=== PATIENT | female | born 1975 | race Caucasian/White ===

== ENCOUNTER → 2017-01-07 | Outpatient (CLI) | payer OTHER ==
[~2017-01-07] MED LIST: GADOBUTROL 7.5 MMOL/7.5 ML PFS ONE
== END | disposition home or self-care (01) ==
LOC: CFH 12:42
PROVIDERS: ATTEND Nurse Practitioner Primary Care
DX: M50.323 Other cervical disc degeneration at C6-C7 level (principal); M50.223 Other cervical disc displacement at C6-C7 level; E03.9 Hypothyroidism, unspecified; E78.2 Mixed hyperlipidemia; R51 Headache; G89.29 Other chronic pain; Z79.899 Other long term (current) drug therapy; Z80.3 Family history of malignant neoplasm of breast
CPT/HCPCS: 70553; 72141; A9585

== ENCOUNTER → 2018-04-18 | Outpatient (CLI) | payer OTHER | END | disposition home or self-care (01) | LOC: CFH 15:21 | PROVIDERS: ATTEND Nurse Practitioner Primary Care | DX: Z12.31 Encounter for screening mammogram for malignant neoplasm of breast (principal) | CPT/HCPCS: 77063; 77067 ==

== ENCOUNTER 2019-10-01 13:54 | Outpatient (CLI) | payer OTHER ==
[2019-10-01] MEDS ORDERED: ASCO500T8 PO (15:08)
[2019-10-01] MEDS ORDERED: IBUP-1623 PO (15:08)
[2019-10-01] MEDS ORDERED: LORA-702 PO (15:08)
[2019-10-01] MEDS ORDERED: TRAZ50TA66 PO (15:08)
[2019-10-01] MEDS ORDERED: TURM500C4 PO (15:08)
[2019-10-01] MEDS ORDERED: CYAN50003 PO (15:08)
[2019-10-01] MEDS ORDERED: TOPI50TA8 PO (15:08)
[2019-10-01] MEDS ORDERED: CHOL10003 PO (15:08)
[2019-10-01] MEDS ORDERED: ELDE1CAP PO (15:08)
[2019-10-01] MEDS ORDERED: ALBU8.5H8 INH (15:08)
== END 2019-10-01 23:59 | disposition home or self-care (01) ==
LOC: STAR 13:54
PROVIDERS: ATTEND Surgery Surgery of the Hand
DX: Z02.9 Encounter for administrative examinations, unspecified (principal)

== ENCOUNTER 2019-10-05 05:29 | Day surgery (SDC) | payer OTHER ==
[~2019-10-05] VITALS: Ht 157.5 cm; Wt 52.3 kg
[~2019-10-05 05:29] MED LIST changes: +ALBU8.5H8 INH; +ASCO500T8 PO; +CHOL10003 PO; +CYAN50003 PO; +ELDE1CAP PO; -GADOBUTROL 7.5 MMOL/7.5 ML PFS ONE; +IBUP-1623 PO; +LORA-702 PO; +TOPI50TA8 PO; +TRAZ50TA66 PO; +TURM500C4 PO
[2019-10-05] MEDS ORDERED: CHLORHEXIDINE 15 ML UDC MM STA (06:12)
[2019-10-05] MEDS ORDERED: LACTATED RINGERS 1,000 ML IV SCH (06:12)
[2019-10-05 06:14] LABS: HCG UR SG 1.015 (1.003-1.030)
[2019-10-05] MEDS ORDERED: BUPIVACAINE/PF 0.25% ONE (06:27)
[2019-10-05] MEDS ORDERED: BUPIVACAINE/PF 0.5% ONE (06:27)
[2019-10-05] MEDS ORDERED: LIDOCAINE 1%, 20ML ONE ×2 (06:27→06:41)
[2019-10-05] MEDS ORDERED: EPINEPHRINE 1 MG/ML, 1ML ONE (06:29)
[2019-10-05] MEDS ORDERED: VANCOMYCIN 1,000 MG ONE (06:35)
[2019-10-05] MEDS ORDERED: LABETALOL 5MG/ML, 20ML ONE (06:40)
[2019-10-05] MEDS ORDERED: MAGNESIUM SULFATE 1 GM/2 ML ONE (06:40)
[2019-10-05] MEDS ORDERED: DEXAMETHASONE 4 MG/ML, 1ML ONE (06:50)
[2019-10-05] MEDS ORDERED: LIDOCAINE 2% 100MG/5ML SYRINGE ONE (06:50)
[2019-10-05] MEDS ORDERED: PROPOFOL 10 MG/ML, 20ML ONE (06:50)
[2019-10-05] MEDS ORDERED: ROCURONIUM 10MG/ML,5ML ONE (06:50)
[2019-10-05] MEDS ORDERED: CEFAZOLIN 1,000 MG ONE (06:50)
[2019-10-05] MEDS ORDERED: GLYCOPYRROLATE 0.2MG/1ML, 5ML ONE (06:50)
[2019-10-05] MEDS ORDERED: MIDAZOLAM 1 MG/ML, 2ML ONE (06:51)
[2019-10-05] MEDS ORDERED: FENTANYL PF 100 MCG/2ML ONE ×2 (06:51→08:19)
[2019-10-05] MEDS ORDERED: HYDROmorphone 1 MG/ML, 1ML INJ IVPush PRN (07:30)
[2019-10-05] MEDS ORDERED: MEPERIDINE/PF 25MG/0.5ML IVPush PRN (07:30)
[2019-10-05] MEDS ORDERED: hydrALAzine 20 MG/ML, 1ML IV PRN (07:30)
[2019-10-05] MEDS ORDERED: ALBUTEROL/IPRATROPIUM 2.5MG/0.5MG, 3 ML NPPB PRN (07:30)
[2019-10-05] MEDS ORDERED: METOCLOPRAMIDE 5 MG/ML, 2ML IVPush PRN (07:30)
[2019-10-05] MEDS ORDERED: DIAZEPAM 5 MG/ML, 2ML IVPush PRN (07:30)
[2019-10-05] MEDS ORDERED: DIPHENHYDRAMINE 50 MG/ML, 1ML IVPush PRN (07:30)
[2019-10-05] MEDS ORDERED: ACETAMINOPHEN 325 MG TABLET PO PRN (07:30)
[2019-10-05] MEDS ORDERED: ONDANSETRON 2MG/ML, 2ML IVPush PRN (07:30)
[2019-10-05] MEDS ORDERED: OXYcodone 5 MG/5 ML ORAL.SOL UDC PO PRN (07:30)
[2019-10-05] MEDS ORDERED: HYDROcodone/APAP 7.5-325MG/15ML UDC PO PRN (07:30)
[2019-10-05] MEDS ORDERED: MIDAZOLAM 1 MG/ML, 2ML IV PRN (07:30)
[2019-10-05] MEDS ORDERED: EPHEDRINE 50 MG/ML, 1ML IM PRN (07:30)
[2019-10-05] MEDS ORDERED: LORazepam 2 MG/ML, 1ML IVPush PRN (07:30)
[2019-10-05] MEDS ORDERED: EPHEDRINE 50 MG/ML, 1ML IVPush PRN (07:30)
[2019-10-05] MEDS ORDERED: ACETAMINOPHEN 650 MG/20.3 ML UDC ONE (08:18)
[2019-10-05] MEDS ORDERED: OXYcodone 5 MG/5 ML ORAL.SOL UDC ONE (08:19)
[2019-10-05] MEDS: FENTANYL PF 100 MCG/2ML IV PRN ×2 (08:28→08:41)
[2019-10-05] MEDS ORDERED: HYDROcodone/APAP 7.5-325MG/15ML UDC ONE (09:24)
== END 2019-10-05 10:10 | disposition home or self-care (01) ==
LOC: OUT 05:29
PROVIDERS: ATTEND Surgery Surgery of the Hand
DX: G56.21 Lesion of ulnar nerve, right upper limb (principal); Z11.59 Encounter for screening for other viral diseases; M25.531 Pain in right wrist; J45.909 Unspecified asthma, uncomplicated; Z88.2 Allergy status to sulfonamides; Z88.1 Allergy status to other antibiotic agents; Z72.89 Other problems related to lifestyle; Z79.899 Other long term (current) drug therapy; Z82.49 Family history of ischemic heart disease and other diseases of the circulatory system
CPT/HCPCS: 36415; 64718; 81025; 87635; J0690; J1100; J2250; J2704; J3010; J3475; J3490; J7120; J0171; J3370